=== PATIENT | female | born 2000 | race Caucasian/White ===

== ENCOUNTER 2020-12-12 17:43 | Outpatient (CLI) | payer BC ==
[2020-12-12] MEDS ORDERED: LACTATED RINGERS 250 ML IV PRN (18:14)
[2020-12-12] MEDS ORDERED: ACETAMINOPHEN IV (For NPO) 1,000 MG in EMPTY BAG 1 BAG IVPB ONE (18:14)
[2020-12-12 18:40] LABS: Appearance,Urine Clear (Clear); Bacteria,Urine Occasional /hpf; Bilirubin,Urine Negative (Negative); Blood,Urine Negative (Negative); Color,Urine Light Yellow; Glucose,Urine (UA) Negative (Negative); Hyaline Casts,Urine 1 /lpf (0-2); Ketones,Urine Negative (Negative); Leukocyte Esterase,Urine Large (Negative); Mucus,Urine Rare /hpf; Nitrite,Urine Negative (Negative); Protein,Urine Negative (Negative); RBC,Urine 1 /hpf (0-5); Squamous Epithelial Cell,Urine 6 /hpf (0-4); Urobilinogen,Urine <2.0 mg/dL (<2.0); WBC,Urine 9 /hpf (0-5)
[2020-12-12] MEDS ORDERED: LACTATED RINGERS 1,000 ML IV SCH (19:30)
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
[2020-12-12 21:31] VITALS: BP 122/61; PULSE 75; RESP 18; TEMP 98.4
== END 2020-12-12 20:30 | disposition home or self-care (01) ==
LOC: FBPOP 17:43
PROVIDERS: ATTEND Obstetrics & Gynecology Obstetrics
DX: Z34.92 Encounter for supervision of normal pregnancy, unspecified, second trimester (principal); Z3A.20 20 weeks gestation of pregnancy; N85.9 Noninflammatory disorder of uterus, unspecified
CPT/HCPCS: 99215; 96361; 96366; 96367; 81001; 76805; J0131

== ENCOUNTER 2021-03-09 02:52 | Emergency (ER) | payer BC ==
[2021-03-09 03:01] VITALS: TEMP 97.7
[2021-03-09] MEDS ORDERED: SODIUM CHLORIDE 0.9% 1,000 ML IV ONE (03:10)
[2021-03-09] MEDS ORDERED: ONDANSETRON 4 MG/2 ML VIAL IVP STA (03:10)
[2021-03-09] MEDS ORDERED: MAG HYDROX/AL HYDROX/SIMETH 30 ML CUP PO PRN (03:10)
--- NOTE | 2021-03-09 03:20 | ED ---
Nausea/Vomiting/Diarrhea HPI - General Chief complaint: Nausea/Vomiting/Diarrhea Stated complaint: vomiting, heartburn, 33 weeks pgt Time Seen by Provider: 03/09/21 03:09 Source: patient Mode of arrival: ambulatory Limitations: no limitations - History of Present Illness Initial comments: 's patient is a 20-year-old woman who presents to have evaluation for nausea vomiting and heartburn. The patient states that symptoms started about 2 hours ago. She had a few rounds of vomiting which was followed by having heartburn sensation substernal area. The patient denies any abdominal or chest pain. No dyspnea, diaphoresis, palpitations, lightheadedness or syncope. No leg pain or swelling. No change in urination or bowel movements. Patient is 33 weeks . Patient states she is feeling good movement. No vaginal bleeding or fluid. MD complaint: nausea, vomiting, other Onset/Timin -: hour(s) Description of Vomiting: food contents Associated Abdominal Pain: No Consistency: constant Improves with: none Worsens with: none - Related Data Home Medications Medication Instructions Recorded Confirmed Pnv,Calcium 72/Iron/Folic Acid 1 tab PO DAILY 12/12/20 12/12/20 [ Plus Tablet] Sertraline [Zoloft] 25 mg PO DAILY 12/12/20 12/12/20 Previous Rx's Medication Instructions Recorded Ondansetron Odt [Zofran ODT] 4 mg PO Q8HR PRN #10 tab 03/09/21 Allergies Allergy/AdvReac Type Severity Reaction Status Date / Time No Known Allergies Allergy Verified 03/09/21 03:01 Review of Systems ROS Statement: Those systems with pertinent positive or pertinent negative responses have been documented in the HPI. ROS Other: All systems not noted in ROS Statement are negative. Constitutional: Denies: fever, chills Respiratory: Denies: cough, dyspnea Cardiovascular: Denies: chest pain, palpitations, edema Gastrointestinal: Reports: nausea, vomiting. Denies: abdominal pain, diarrhea, constipation, hematemesis Genitourinary: Denies: dysuria, frequency, hematuria, abnormal menses Musculoskeletal: Denies: back pain Skin: Denies: rash Neurological: Denies: headache Past Medical History Past Medical History: No Reported History History of Any Multi-Drug Resistant Organisms: None Reported Past Surgical History: No Surgical Hx Reported Past Psychological History: Anxiety Smoking Status: Never smoker Past Alcohol Use History: None Reported Past Drug Use History: None Reported General Exam Limitations: no limitations General appearance: alert, in no apparent distress Head exam: Present: atraumatic, normocephalic Eye exam: Present: normal appearance. Absent: scleral icterus, conjunctival injection ENT exam: Present: normal oropharynx Respiratory exam: Present: normal lung sounds bilaterally. Absent: respiratory distress, wheezes, rales, rhonchi, stridor Cardiovascular Exam: Present: regular rate, normal rhythm, normal heart sounds. Absent: systolic murmur, diastolic murmur, rubs, gallop GI/Abdominal exam: Present: soft, other (Gravid uterus palpable well above diaphragm. movements noted.). Absent: distended, tenderness, guarding, rebound, rigid, mass, pulsatile mass, hernia Extremities exam: Present: normal inspection, normal capillary refill. Absent: pedal edema, calf tenderness Back exam: Present: normal inspection. Absent: CVA tenderness (R), CVA tenderness (L) Neurological exam: Present: alert Skin exam: Present: warm, dry, intact, normal color. Absent: rash Course Vital Signs 03/09/21 02:58 Temperature 97.7 F Pulse Rate 113 H Respiratory 22 Rate Blood Pressure 122/74 O2 Sat by Pulse 96 Oximetry Disposition Clinical Impression: Vomiting Disposition: HOME SELF-CARE Condition: Good Instructions (If sedation given, give patient instructions): Acute Nausea and Vomiting (ED) Prescriptions: Ondansetron Odt [Zofran ODT] 4 mg PO Q8HR PRN #10 tab PRN Reason: Nausea Is patient prescribed a controlled substance at d/c from ED?: No Referrals: June Sorto DO [Primary Care Provider] - 1-2 days
[2021-03-09 05:29] VITALS: BP 111/89; PULSE 77; RESP 20
== END 2021-03-09 05:38 | disposition home or self-care (01) ==
LOC: EC 02:52
DX: O21.2 Late vomiting of pregnancy (principal); O99.891 Other specified diseases and conditions complicating pregnancy; R12 Heartburn; Z3A.33 33 weeks gestation of pregnancy
CPT/HCPCS: 99283; 96374; 96361; J2405

== ENCOUNTER 2021-04-04 13:32 | Outpatient (CLI) | payer BC ==
[2021-04-04 13:43] LABS: Glucose,Whole Blood 93 mg/dL (75-99)
[2021-04-04 15:08] VITALS: BP 124/70; PULSE 89; RESP 16; TEMP 97.1
--- NOTE | 2021-04-12 11:52 | P.MSEPDOC ---
Presenting Problems - Arrival Data Date of Arrival on Unit: 04/04/21 Time of Arrival on Unit: 13:30 Mode of Transport: Wheelchair - Complaint OB-Reason for Admission/Chief Complaint: Syncope/Fainting Spell Medical History - Information : 1 Para: 0 Term: 0 : 0 Abortions: Spontaneous or Elective: 0 Number of Living Children: 0 - Gestational Age Gestational Age by TIM (wks/days): 37 Weeks and 3 Days Review of Systems - Review of Systems Constitutional: No problems Breast: No problems ENT: No problems Cardiovascular: No problems Respiratory: No problems Gastrointestinal: No problems Genitourinary: No problems Musculoskeletal: No problems Neurological: No problems Skin: No problems Vital Signs - Temperature Temperature: 97.1 F Temperature Source: Tympanic - Pulse Right Brachial Pulse Rate: 89 Pulse Assessment Method: Automatic Cuff - Respirations Respiratory Rate: 16 Oxygen Delivery Method: Room Air - Blood Pressure Right Arm Blood Pressure: 124/70 Blood Pressure Mean: 88 Blood Pressure Source: Automatic Cuff Medical Screen Scoring - Cervical Exam Membranes: Intact - Assessment - Baby A Baseline FHR: 125 Heart Rate - NICHD Category: Category I (Normal) NST: Reactive Physician Notification - Physician Notified Physician Notified Date: 04/04/21 Physician Notified Time: 14:00 Physician: Rosa Zavala Order Received: Yes - Notification Comment Comment: d/c home Maternal Triage Index - Maternal Triage Index Presenting for scheduled procedure w/no complaint: No - Stat/Priority 1 Stat Priority 1: No - Urgent/Priority 2 Urgent Priority 2: No - Prompt/Priority 3 Prompt Priority 3: No - Non-Urgent/Priority 4 Non-Urgent Priority 4: Yes Criteria Met for Priority 4: anxiety Disposition - Disposition OB Disposition: Discharge to home Discharge Date: 04/04/21 Discharge Time: 15:08 I agree with the RN Medical Screening Exam: Yes Physician's MSE Comment: I have neither seen nor examined the patient. Case reviewed; plan agreed upon as documented in EMR&OBIX.: Yes Diagnosis: RELATED CONDITIONS, UNSPECIFIED, THIRD TRIMESTER
== END 2021-04-04 15:12 | disposition home or self-care (01) ==
LOC: FBPOP 13:32
PROVIDERS: ATTEND Obstetrics & Gynecology
DX: O26.893 Other specified pregnancy related conditions, third trimester (principal); R55 Syncope and collapse; Z3A.37 37 weeks gestation of pregnancy
CPT/HCPCS: 59025; 99213

== ENCOUNTER 2021-04-13 07:00 | Inpatient (IN) | payer BC ==
[2021-04-13] MEDS ORDERED: DINOPROSTONE 10 MG INSERT.ER VAGINAL ONE (19:30)
[2021-04-13] MEDS ORDERED: BUTORPHANOL 1 MG/ML 1 ML VIAL IV PRN (19:43)
--- NOTE | 2021-04-13 19:49 | P.HPOB ---
History of Present Illness H&P Date: 04/13/21 Chief Complaint: 38-6/7 weeks, IUGR, induction The patient is a 20-year-old 1 para 0 admitted at 38-6/7 weeks as established by last menstrual period and confirmed by 13 week ultrasound. She is admitted for induction of labor secondary to the diagnosis of intrauterine growth restriction with growth below the 10th percentile at 35 weeks. She has had twice weekly NSTs along with weekly biophysical profile and S/D ratios which have been normal throughout. Her cervix is somewhat unfavorable and she is admitted for Cervidil cervical ripening prior to Pitocin induction tomorrow. On labor and delivery, all signs are reassuring with a category 1 heart rate tracing. Her was otherwise uncomplicated though group B strep status is positive. Obstetrical history: 1 para 0 with current statistics listed in history of present illness. EDC of 04/22/2021 was established by last menstrual period and confirmed by 13 week ultrasound. Laboratory workup demonstrates a blood type of O+ with a negative antibody screen. Rubella status is immune. The remainder of the laboratory workup was within normal limits. One hour Glucola was normal and group B strep status is positive. Gynecologic history: Unremarkable with no history of any infections to include STDs. Review of Systems Review of systems is confined to history of present illness. Past Medical History Past Medical History: No Reported History History of Any Multi-Drug Resistant Organisms: None Reported Past Surgical History: No Surgical Hx Reported Past Anesthesia/Blood Transfusion Reactions: No Reported Reaction Past Psychological History: Anxiety, Depression Smoking Status: Never smoker Past Alcohol Use History: None Reported Past Drug Use History: None Reported - Past Family History Mother Family Medical History: No Reported History Medications and Allergies Home Medications Medication Instructions Recorded Confirmed Type Pnv,Calcium 72/Iron/Folic Acid 1 tab PO DAILY 12/12/20 04/13/21 History [ Plus Tablet] Sertraline [Zoloft] 50 mg PO DAILY 12/12/20 04/13/21 History Allergies Allergy/AdvReac Type Severity Reaction Status Date / Time No Known Allergies Allergy Verified 04/04/21 13:35 Exam Vital Signs Temp Pulse Resp BP Pulse Ox 04/13/21 19:20 97 F L 97 16 134/66 100 Intake and Output 04/13/21 04/13/21 04/13/21 06:59 14:59 22:59 Other: Weight 84.368 kg In general, this is a well-developed, well-nourished white female in no acute distress. Her heart has a regular rhythm and rate without murmur. Her lungs are clear to auscultation bilaterally in all english. Her abdomen is gravid, nondistended, has normal active bowel sounds, is soft, nontender, and without any palpable masses aside from the uterine fundus. Her extremities are without any cyanosis, clubbing, or significant edema and are nontender to palpation bilaterally. Digital cervical examination demonstrates the cervix to be fingertip dilated, approximate 60-70% effaced, the vertex in presentation at -2 station. Cervidil is placed in the posterior fornix per protocol. Assessment and Plan (1) Term Current Visit: Yes Status: Acute Code(s): Z34.90 - ENCNTR FOR SUPRVSN OF NORMAL , UNSP, UNSP TRIMESTER SNOMED Code(s): 21724036 (2) IUGR (intrauterine growth restriction) Current Visit: Yes Status: Acute Code(s): GCS5843 - SNOMED Code(s): 27646553 (3) Unfavorable cervix in term Current Visit: Yes Status: Acute Code(s): O34.40 - MATERNAL CARE FOR OTH ABNLT OF CERVIX, UNSP TRIMESTER SNOMED Code(s): 246992028 (4) Mother positive for group B Streptococcus colonization Current Visit: Yes Status: Acute Code(s): P00.2 - AFFECTED BY MATERNAL INFEC/PARASTC DISEASES SNOMED Code(s): 77366667349871 Plan: The patient has been admitted for Cervidil cervical ripening to be followed by Pitocin induction should it be necessary. The risks and complications of the procedure been thoroughly explained to the patient and her significant other. Cervidil has been placed. The intention would be to start Pitocin augmentation tomorrow morning at 6 AM should it be necessary. She will have antibody prophylaxis with penicillin started at the onset of labor for tomorrow morning, whichever comes first. She is a good candidate for either IV or epidural analgesia, whichever she may choose. She will continue to have close maternal and surveillance and expectant management will be practiced.
[2021-04-13 19:53] LABS: Basophils # (A) 0.1 k/uL (0-0.2); Basophils % (A) 1 %; Eosinophils # (A) 0.4 k/uL (0-0.7); Eosinophils % (A) 3 %; HCT 37.8 % (34.0-46.0); HGB 12.6 gm/dL (11.4-16.0); Lymphocytes # (A) 2.4 k/uL (1.0-4.8); Lymphocytes % (A) 17 %; MCH 32.3 pg (25.0-35.0); MCHC 33.3 g/dL (31.0-37.0); MCV 96.9 fL (80.0-100.0); Mean Platelet Volume 7.9; Monocytes # (A) 0.8 k/uL (0-1.0); Monocytes % (A) 6 %; Neutrophils # (A) 9.8 k/uL (1.3-7.7); Neutrophils % (A) 70 %; Platelet Count 300 k/uL (150-450); RDW 13.1 % (11.5-15.5); WBC 13.9 k/uL (4.0-11.0)
[2021-04-14] MEDS ORDERED: OXYTOCIN 10 UNIT/ML 1 ML VIAL IM PRN (05:19)
[2021-04-14] MEDS ORDERED: METHYLERGONOVINE 0.2 MG/ML 1 ML AMP IM PRN (05:19)
[2021-04-14] MEDS ORDERED: TERBUTALINE 1 MG/ML VIAL SQ PRN (05:19)
[2021-04-14] MEDS ORDERED: CARBOPROST TROMETHAMINE 250 MCG/ML 1 ML AMP IM PRN (05:19)
[2021-04-14] MEDS ORDERED: LIDOCAINE 0.5% (PF) 5 MG/ML (50 ML SDV) SQ PRN (05:19)
[2021-04-14] MEDS ORDERED: LACTATED RINGERS 1,000 ML IV SCH (05:30)
[2021-04-14] MEDS ORDERED: OXYTOCIN 30 UNITS/500 ML NS 30 UNIT in SALINE 1 500ML.BAG IV SCH ×2 (05:30→14:15)
[2021-04-14] MEDS ORDERED: PENICILLIN G POTASSIUM 5,000,000 UNIT in DEXTROSE 5% IN WATER 100 ML IVPB ONE ×2 (06:00)
[2021-04-14] MEDS: LACTATED RINGERS 1,000 ML IV SCH ×3 (06:01→12:25)
[2021-04-14] MEDS: PENICILLIN G POTASSIUM 2,500,000 UNIT in DEXTROSE 5% IN WATER 100 ML IVPB SCH ×4 (10:51→14:32)
[2021-04-14] MEDS ORDERED: fentaNYL (PF) 50 MCG/ML 5 ML AMP ONE (11:38)
[2021-04-14] MEDS ORDERED: ROPIVACAINE 5MG/ML 20ML VIAL ONE (11:38)
[2021-04-14] MEDS ORDERED: SODIUM CHLORIDE 0.9% 100 ML BAG ONE (11:38)
[2021-04-14] MEDS ORDERED: HYDROcodone/APAP 7.5-325MG 1 EACH TAB PO PRN (14:02)
[2021-04-14] MEDS ORDERED: BENZOCAINE/MENTHOL SPRAY 1 GM/SPRAY AEROSOL TOPICAL PRN (14:02)
[2021-04-14] MEDS ORDERED: ACETAMINOPHEN TAB 325 MG TAB PO PRN (14:02)
[2021-04-14] MEDS ORDERED: diphenhydrAMINE 50 MG/ML 1 ML VIAL IVP PRN ×2 (14:02)
[2021-04-14] MEDS ORDERED: diphenhydrAMINE 25 MG CAP PO PRN (14:02)
[2021-04-14] MEDS ORDERED: ZOLPIDEM 5 MG TAB PO PRN (14:02)
[2021-04-14] MEDS ORDERED: SIMETHICONE 80 MG CHEWABLE PO PRN (14:02)
[2021-04-14] MEDS ORDERED: diphenhydrAMINE 50 MG CAP PO PRN (14:02)
[2021-04-14] MEDS ORDERED: HYDROCORTISONE 2.5% RECTAL CREAM 30 GM TUBE RECTAL PRN (14:02)
[2021-04-14] MEDS ORDERED: HYDROcodone/APAP 5-325MG 1 EACH TAB PO PRN (14:02)
--- NOTE | 2021-04-14 14:06 | P.PROBDLV ---
Vaginal Delivery Note - . Vaginal Delivery Note: The patient is a 20-year-old 1 para 0 admitted at 38-6/7 weeks with an unfavorable cervix secondary to a diagnosis of intrauterine growth restriction with growth below the 10th percentile discovered at 35+ weeks. Her testing has been reassuring. Her was otherwise uncomplicated and group B strep status is positive. She was admitted for Cervidil cervical ripening which she had placed last evening. Over the course of the night she did make cervical progress such that this morning, with Pitocin augmentation started she was found to be 2 cm dilated and 70% effaced at which time artificial rupture of membranes is carried out demonstrating clear fluid. She made progress to the active phase of labor and had an epidural catheter placed for analgesia. She then progressed quickly through the active phase to complete and pushed over the course of approximately 3-4 contractions to a normal spontaneous vaginal delivery of a viable 5 lbs. 12 oz. baby girl with Apgars of 9 at 1 minute and 9 at 5 minutes delivered in the right occiput anterior position. The placenta was delivered spontaneously, intact, and grossly normal although it was very small. There was a grossly normal three- vessel cord inserted approximate 3-4 cm from the margin of the placental disc. There were no significant lacerations of the perineum, vagina, or cervix. All sponge, instrument, needle counts were correct. There were no complications. Both mother and infant are resting comfortably in recovery.
[2021-04-14] MEDS: IBUPROFEN 600 MG TAB PO SCH ×2 (15:03→21:32)
[2021-04-14] MEDS: SENNOSIDES-DOCUSATE SODIUM 1 EACH TAB PO SCH (19:50)
[2021-04-15] MEDS: IBUPROFEN 600 MG TAB PO SCH ×3 (00:31→17:03)
[2021-04-15 05:43] LABS: Basophils % (A) 0 %; Eosinophils # (A) 0.5 k/uL (0-0.7); Eosinophils % (A) 3 %; HGB 11.7 gm/dL (11.4-16.0); Lymphocytes # (A) 3.3 k/uL (1.0-4.8); Lymphocytes % (A) 19 %; MCH 33.3 pg (25.0-35.0); MCHC 34.3 g/dL (31.0-37.0); Mean Platelet Volume 8.2; Monocytes # (A) 0.9 k/uL (0-1.0); Monocytes % (A) 5 %; Neutrophils # (A) 12.5 k/uL (1.3-7.7); Neutrophils % (A) 72 %; Platelet Count 251 k/uL (150-450); RBC 3.51 m/uL (3.80-5.40); RDW 12.6 % (11.5-15.5); WBC 17.4 k/uL (4.0-11.0)
[2021-04-15] MEDS: LACTATED RINGERS 1,000 ML IV SCH (06:54)
[2021-04-15] MEDS: SENNOSIDES-DOCUSATE SODIUM 1 EACH TAB PO SCH (08:28)
--- NOTE | 2021-04-15 11:19 | P.DS ---
Providers Date of admission: 04/13/21 19:01 Expected date of discharge: 04/15/21 Attending physician: Sonido Goss Primary care physician: Stated None - Discharge Diagnosis(es) (1) Term Current Visit: Yes Status: Acute (2) IUGR (intrauterine growth restriction) Current Visit: Yes Status: Acute (3) Unfavorable cervix in term Current Visit: Yes Status: Acute (4) Mother positive for group B Streptococcus colonization Current Visit: Yes Status: Acute (5) Normal spontaneous vaginal delivery Current Visit: Yes Status: Acute Hospital Course: The patient is a 20-year-old 1 para 0 admitted at 38-6/7 weeks by good dating parameters for Cervidil cervical ripening secondary to the diagnosis of intrauterine growth restriction with growth at less than 10th percentile starting at 35 weeks. testing was entirely reassuring. As her cervix was unfavorable, Cervidil is placed fairly after admission and she progressed overnight at which time Pitocin augmentation was added and she underwent artificial rupture of membranes. She then made progress in labor and had an epidural catheter placed. She progressed quickly to complete and then pushed to a normal spontaneous vaginal delivery of a viable 5 lbs. 12 oz. baby girl with Apgars of 9 at 1 minute and 9 at 5 minutes. Her course was unremarkable with vital signs remaining stable and her temperature was afebrile throughout. She was deemed stable for discharge on day #1 was discharged home to follow-up in the office in 6 weeks' time routinely. Discharge instructions included calling for any significantly increased bleeding or foul-smelling lochia, significantly increased fever or abdominal pain, perineal complaints, breast complaints, or anything else that concerned her. She was additionally instructed to have nothing in the vagina for at least 6 weeks time to include intercourse. She understood her instructions and agrees to follow up as noted above. Discharge medications included only [id number] analgesic pain medications as she has not opted to breast-feed. Maternal blood type is O+ and rubella status is immune. Procedures: #1. Cervidil cervical ripening #2. Pitocin induction #3. Artificial rupture of membranes #4. Epidural analgesia #5. Normal spontaneous vaginal delivery Patient Condition at Discharge: Stable Plan - Discharge Summary New Discharge Prescriptions: No Action Sertraline [Zoloft] 50 mg PO DAILY Pnv,Calcium 72/Iron/Folic Acid [ Plus Tablet] 1 tab PO DAILY Discharge Medication List Pnv,Calcium 72/Iron/Folic Acid [ Plus Tablet] 1 tab PO DAILY 12/12/20 [History] Sertraline [Zoloft] 50 mg PO DAILY 12/12/20 [History] Follow up Appointment(s)/Referral(s): Sonido Goss MD [STAFF PHYSICIAN] - 6 Weeks Discharge Disposition: HOME SELF-CARE
[2021-04-15 16:09] VITALS: BP 122/78; PULSE 81; RESP 18; TEMP 97.7
== END 2021-04-15 19:30 | disposition home or self-care (01) | DRG 807 ==
LOC: 4FBP 19:01
PROVIDERS: ADMIT Obstetrics & Gynecology; ATTEND Obstetrics & Gynecology
PROC: 10E0XZZ Delivery of Products of Conception, External Approach (ICD-10-PCS; principal; 2021-04-14)
PROC: 10907ZC Drainage of Amniotic Fluid, Therapeutic from Products of Conception, Via Natural or Artificial Opening (ICD-10-PCS; 2021-04-14)
DX: O36.5930 Maternal care for other known or suspected poor fetal growth, third trimester, not applicable or unspecified (principal); Z37.0 Single live birth; O99.824 Streptococcus B carrier state complicating childbirth; O99.344 Other mental disorders complicating childbirth; F41.9 Anxiety disorder, unspecified; F32.9 Major depressive disorder, single episode, unspecified; Z3A.38 38 weeks gestation of pregnancy
CPT/HCPCS: 85025; 86850; 86900; 86901

== ENCOUNTER → 2023-02-09 | Outpatient (CLI) | payer OTHER ==
--- NOTE | 2023-02-10 08:20 | CT ---
EXAMINATION TYPE: CT abdomen pelvis wo/w con DATE OF EXAM: 02/09/2023 COMPARISON: Ultrasound 12/12/2020 HISTORY: Cyst found on left ovary CT DLP: 1557.1 mGycm Automated exposure control for dose reduction was used. CONTRAST: CT scan of the abdomen pelvis is performed with IV Contrast, patient injected with 100cc mL of Isovue 300. FINDINGS- LUNG BASES- No significant abnormality is appreciated. LIVER/GB- No gross abnormality is appreciated. PANCREAS- No gross abnormality is seen. SPLEEN- No gross abnormality is seen. ADRENALS- No gross abnormality is seen. KIDNEYS/BLADDER- no hydronephrosis nephrolithiasis or renal mass. BOWEL- nonspecific bowel gas pattern with no obstruction. Appendix normal. Small hiatal hernia. LYMPH NODES- No greater than 1cm abdominal or pelvic lymph nodes are appreciated. OSSEOUS STRUCTURES- No significant abnormality is seen. OTHER- ovaries are fairly symmetric in size with no evidence of adnexal cyst. Aorta of normal calibe r. Small fat-containing periumbilical hernia. Curvature of the spine correlate scoliosis. IMPRESSION- 1. No evidence of adnexal cyst.
== END | disposition home or self-care (01) ==
LOC: RADCTMAIN 17:30
PROVIDERS: ATTEND Family Medicine
DX: N83.291 Other ovarian cyst, right side (principal)
CPT/HCPCS: 74178; Q9967

== ENCOUNTER 2024-07-26 07:05 | Inpatient (IN) | payer OTHER ==
--- NOTE | 2024-07-26 07:59 | P.HPOB ---
History of Present Illness H&P Date: 07/26/24 Chief Complaint: labor, SROM 23 year old presents at 39 weeks with SROM at 0630. She sees a physican at another facility. Her cervix is 3-4/60/-2. She is marcus irregularly and heart tones are category 1. Review of Systems All systems: negative Constitutional: Denies chills, Denies fever Eyes: denies blurred vision, denies pain Ears, nose, mouth and throat: Denies headache, Denies sore throat Cardiovascular: Denies chest pain, Denies shortness of breath Respiratory: Denies cough Gastrointestinal: Denies abdominal pain, Denies diarrhea, Denies nausea, Denies vomiting Genitourinary: Denies dysuria, Denies hematuria Musculoskeletal: Denies myalgias Integumentary: Denies pruritus, Denies rash Neurological: Denies numbness, Denies weakness Psychiatric: Denies anxiety, Denies depression Endocrine: Denies fatigue, Denies weight change Past Medical History Past Medical History: No Reported History History of Any Multi-Drug Resistant Organisms: None Reported Past Surgical History: No Surgical Hx Reported Past Anesthesia/Blood Transfusion Reactions: No Reported Reaction Smoking Status: Never smoker - Past Family History Mother Family Medical History: No Reported History Medications and Allergies Home Medications Medication Instructions Recorded Confirmed Type Vit No.180/Iron/Folic 1 tab PO DAILY 12/12/20 07/26/24 History [ Plus Tablet] Allergies Allergy/AdvReac Type Severity Reaction Status Date / Time No Known Allergies Allergy Verified 04/04/21 13:35 Exam Osteopathic Statement: *. No significant issues noted on an osteopathic structural exam other than those noted in the History and Physical/Consult. Vital Signs Temp Pulse Resp BP Pulse Ox 07/26/24 07:10 97.7 F 83 16 135/78 99 Intake and Output 07/25/24 07/26/24 07/26/24 22:59 06:59 14:59 Other: Weight 94.347 kg Heart: Regular rate and rhythm Lungs: Clear to auscultation bilaterally Abdomen: Soft, nontender Extremities: Negative Homans sign Assessment and Plan (1) Normal labor Current Visit: Yes Status: Acute Code(s): O80 - ENCOUNTER FOR FULL-TERM UNCOMPLICATED DELIVERY; Z37.9 - OUTCOME OF DELIVERY, UNSPECIFIED SNOMED Code(s): 22703583 (2) Spontaneous rupture of membranes Current Visit: Yes Status: Acute Code(s): MVK0382 - SNOMED Code(s): 169 376152 Plan: 1. admit to [facility] 2. obtain records 3. expectant management 4. anticipate normal vaginal delivery
[2024-07-26] MEDS ORDERED: OXYTOCIN 10 UNIT/ML 1 ML VIAL IM PRN (08:02)
[2024-07-26] MEDS ORDERED: miSOPROStoL 200 MCG TAB PO PRN ×2 (08:02→11:41)
[2024-07-26] MEDS ORDERED: TERBUTALINE 1 MG/ML VIAL SQ PRN (08:02)
[2024-07-26] MEDS ORDERED: miSOPROStoL 200 MCG TAB RECTAL PRN (08:02)
[2024-07-26] MEDS ORDERED: LIDOCAINE 0.5% (PF) 5 MG/ML (50 ML SDV) SQ PRN (08:02)
[2024-07-26] MEDS ORDERED: METHYLERGONOVINE 0.2 MG/ML 1 ML AMP IM PRN ×2 (08:02→11:41)
[2024-07-26] MEDS ORDERED: CARBOPROST TROMETHAMINE 250 MCG/ML 1 ML AMP IM PRN ×2 (08:02→11:41)
[2024-07-26] MEDS ORDERED: TRANEXAMIC 1,000 MG/100ML-NACL 1,000 MG in EMPTY BAG 1 BAG IV PRN (08:02)
[2024-07-26 08:14] LABS: Basophils # (A) 0.1 k/uL (0-0.2); Basophils % (A) 0 %; Eosinophils # (A) 0.2 k/uL (0-0.7); Eosinophils % (A) 1 %; HCT 40.4 % (34.0-46.0); HGB 13.6 gm/dL (11.4-16.0); Lymphocytes # (A) 3.3 k/uL (1.0-4.8); Lymphocytes % (A) 20 %; MCH 31.9 pg (25.0-35.0); MCHC 33.7 g/dL (31.0-37.0); MCV 94.5 fL (80.0-100.0); Mean Platelet Volume 9.1; Monocytes # (A) 0.9 k/uL (0-1.0); Monocytes % (A) 5 %; Neutrophils # (A) 11.8 k/uL (1.3-7.7); Neutrophils % (A) 72 %; Platelet Count 285 k/uL (150-450); RBC 4.27 m/uL (3.80-5.40); RDW 12.7 % (11.5-15.5); WBC 16.4 k/uL (3.8-10.6)
[2024-07-26] MEDS: LACTATED RINGERS 1,000 ML IV SCH ×2 (08:23→13:40)
[2024-07-26 08:32] LABS: Amphetamine Screen,Urine Not Detected (NotDetected); Barbiturate Screen,Urine Not Detected (NotDetected); Benzodiazepines Screen,Urine Not Detected (NotDetected); Cocaine Screen,Urine Not Detected (NotDetected); Methadone Screen, Urine Not Detected (NotDetected); Opiate Screen,Urine Not Detected (NotDetected); Oxycodone Screen, Urine Not Detected (NotDetected); Phencyclidine Screen,Urine Not Detected (NotDetected); Tricyclic Antidepressant,Urine Not Detected (NotDetected); Urn Cannabinoid Scrn Not Detected (NotDetected)
[2024-07-26] MEDS: OXYTOCIN 30 UNITS/500 ML NS 30 UNIT in SALINE 1 500ML.BAG IV SCH (08:45)
[2024-07-26] MEDS ORDERED: MORPHINE SULFATE (PF) 0.3 MG/0.3 ML SYR ONE (11:46)
[2024-07-26] MEDS ORDERED: OXYTOCIN 30 UNITS/500 ML NS BAG IV ONE (11:46)
[2024-07-26] MEDS ORDERED: PHENYLEPHRINE-0.9% NACL SYG 1,000 MCG/10 ML SYRINGE ONE (11:46)
[2024-07-26] MEDS ORDERED: ONDANSETRON 4 MG/2 ML VIAL ONE (11:46)
[2024-07-26] MEDS ORDERED: OXYTOCIN 30 UNITS/500 ML NS 30 UNIT in SALINE 1 500ML.BAG IV SCH (12:46)
[2024-07-26] MEDS ORDERED: diphenhydrAMINE 50 MG/ML 1 ML VIAL IVP PRN ×2 (12:46)
[2024-07-26] MEDS ORDERED: METOCLOPRAMIDE 5 MG/ML 2 ML VIAL IVP PRN (12:46)
[2024-07-26] MEDS ORDERED: ONDANSETRON 4 MG/2 ML VIAL IVP PRN (12:46)
[2024-07-26] MEDS ORDERED: ZOLPIDEM 5 MG TAB PO PRN (12:46)
[2024-07-26] MEDS ORDERED: diphenhydrAMINE 25 MG CAP PO PRN (12:46)
[2024-07-26] MEDS ORDERED: diphenhydrAMINE 50 MG CAP PO PRN (12:46)
[2024-07-26] MEDS ORDERED: NALOXONE 0.4 MG/ML 1 ML VIAL IV PRN (12:46)
--- NOTE | 2024-07-26 13:09 | P.OP ---
Date of Procedure: 07/26/24 Preoperative Diagnosis: BP at 39-3/7 weeks, spontaneous rupture of membranes, labor, nonreassuring heart tones Postoperative Diagnosis: same Procedure(s) Performed: Primary low-transverse section Anesthesia: spinal Surgeon: Areli Barcenas Labor Contractor #1: Sonido Goss Estimated Blood Loss (ml): 830 IV fluids (ml): 1,000 Urine output (ml): 200 (Clear yellow) Pathology: other (Placenta) Condition: stable Disposition: observation Indications for Procedure: 23-year-old G2, P1 at 39-3/7 weeks that had been receiving care with Dr. Nixon Wright in [place], patient had spontaneous rupture of membranes and felt she was unable to present to his admitting hospital. Patient presented to [facility] spontaneous rupture of membranes was confirmed with positive AmniSure. Patient was admitted to labor and delivery. Pitocin augmentation of labor was begun as no contractions were appreciated. Deep variables were noted, category 2/3 heart tones are now appreciated Pitocin was turned off and position changes were initiated. heart tones returned to category 2. Patient was counseled on heart tones and need for primary given nonreassuring heart tones. Patient states understanding all questions were answered with patient and her significant other. Anesthesia is notified, will proceed to operating suite. Operative Findings: Viable male delivered at 1210, weight of 7 pounds 5 ounces, Apgars of 9 and 9 at 1 and 5 minutes respectively. Upon entry of the uterus large clot was extruded placenta was noted to be detaching from the uterine wall. Normal ovaries appreciated. Description of Procedure: The patient was prepped and draped in the usual fashion after spinal anesthesia was administered by the anesthesia department. A Pfannenstiel incision was made and extended of the abdominal cavity without difficulty. The bladder peritoneum was elevated and incised and reflected distally. A 2 cm incision was made in the transverse plane of the lower uterine segment to enter the uterus at which time bloody fluid was noted, along with clot. The incision was extended in both directions using the bandage scissors. The head was encountered within the field and delivered up and through the incision where the nose and mouth were thoroughly suctioned. Remainder of the infant was delivered onto the surgical field where the cord was doubly clamped, cut, and the was passed for resuscitative measures with weight and Apgars as noted above. The placenta was delivered manually, intact, and was grossly normal with a grossly normal three-vessel cord. The uterus was exteriorized and the interior cavity of the uterus swept of any remaining placental and membranous fragments with a laparotomy sponge. The margins of the incision were grasped with Mahan clamps and the incision closed in 2 layers. First layer was a running locking layer of 0 chromic catgut from margin to margin followed by a second layer of imbricating 0 Vicryl from margin to margin. Bleeding was noted on the right lateral edge of the hysterotomy incision, appearance of sheared uterine vessel, 2 [id number]'s were used to obtain hemostasis. Surgicel powder was placed along the area with hemostasis appreciated, bladder was noted to be away from the area of concern. Once hemostasis was achieved, the posterior cul-de-sac was suctioned with a guard and the uterine and ovarian findings are as noted above. The uterus was replaced within the abdominal cavity and the gutters swept of any remaining blood fluid or clot. The incision was again reexamined and hemostasis was noted to be excellent. Any small point of bleeding were made hemostatic with the Bovie. Once hemostasis was achieved the parietal peritoneum was loosely reapproximated. The layer of muscles were examined and made hemostatic with the Bovie. Attention was then turned to the fascia which was closed with 0 Vicryl in a running fashion from 1 lateral edge to the other. The subcutaneous tissues were irrigated, made hemostatic with the Bovie, and reapproximated with a running stitch of 30 vicryl.. The skin was reapproximated with regular surgical melinda. Estimated blood loss for the case was approximately 600 mL. All sponge instrument and needle counts are correct. There were no complications. The patient tolerated the procedure well and proceeded to the recovery room in stable condition. Both mother and are resting comfortably in recovery.
[2024-07-26] MEDS: CITRIC ACID-SODIUM CITRATE 15 ML CUP PO ONE (13:22)
[2024-07-26] MEDS: ACETAMINOPHEN IV (For NPO) 1,000 MG in EMPTY BAG 1 BAG IVPB ONE (13:39)
[2024-07-26] MEDS ORDERED: KETOROLAC 15 MG/ML 1 ML VIAL IVP SCH (17:00)
[2024-07-26] MEDS: IBUPROFEN IV 800 MG in SODIUM CHLORIDE 0.9% 250 ML IV ONE (18:10)
[2024-07-26] MEDS: SENNOSIDES-DOCUSATE SODIUM 1 EACH TAB PO SCH (20:32)
[2024-07-26] MEDS: ACETAMINOPHEN TAB 500 MG TAB PO SCH (21:36)
[2024-07-27] MEDS: IBUPROFEN 800 MG TAB PO SCH (02:02)
[2024-07-27] MEDS: SIMETHICONE 80 MG CHEWABLE PO PRN (02:04)
[2024-07-27 06:41] LABS: Basophils % (A) 0 %; Eosinophils # (A) 0.1 k/uL (0-0.7); Eosinophils % (A) 1 %; HCT 30.8 % (34.0-46.0); HGB 10.8 gm/dL (11.4-16.0); Lymphocytes # (A) 2.8 k/uL (1.0-4.8); Lymphocytes % (A) 20 %; MCH 33.4 pg (25.0-35.0); MCV 95.6 fL (80.0-100.0); Mean Platelet Volume 8.7; Monocytes # (A) 0.8 k/uL (0-1.0); Monocytes % (A) 6 %; Neutrophils # (A) 9.6 k/uL (1.3-7.7); Neutrophils % (A) 72 %; Platelet Count 205 k/uL (150-450); RBC 3.22 m/uL (3.80-5.40); RDW 12.8 % (11.5-15.5); WBC 13.5 k/uL (3.8-10.6)
--- NOTE | 2024-07-27 07:03 | P.PNOBGPC ---
Subjective - Subjective Principal diagnosis: Postop day 1, primary Interval history: Patient is doing well postoperatively. She is ambulating and voiding without difficulty. She is tolerating a regular diet without nausea or vomiting. She states her pain is well-controlled. She denies concerns. Patient reports: Reports appetite normal, Reports voiding normally, Reports pain well controlled, Reports ambulating normally : doing well Objective - Vital Signs Latest vital signs: Vital Signs Temp Pulse Resp BP Pulse Ox 07/27/24 04:00 98.5 F 71 16 131/84 97 07/27/24 00:45 16 07/27/24 00:00 98.8 F 74 16 142/95 98 07/26/24 20:00 75 16 133/85 100 07/26/24 16:45 98.0 F 75 16 125/78 97 07/26/24 14:45 98.1 F 65 16 122/65 96 07/26/24 14:30 70 16 137/66 97 07/26/24 14:15 69 16 112/72 97 07/26/24 14:00 65 16 120/63 96 07/26/24 13:45 69 16 108/61 98 07/26/24 13:30 70 16 113/67 98 07/26/24 13:15 67 16 110/64 97 07/26/24 13:00 69 16 108/62 98 07/26/24 12:45 97.1 F L 65 16 105/55 98 07/26/24 07:10 97.7 F 83 16 135/78 99 Intake and Output 07/26/24 07/27/24 07/27/24 22:59 06:59 14:59 Intake Total 832.5 Output Total 1250 800 Balance -417.5 -800 Intake: Intake, IV Titration 332.5 Amount Oxytocin 30 Units/500 ml 332.5 Ns 30 unit In Saline 1 500ml.bag @ Per Protocol IV .Q0M [facility] Rx#:[id number] Oral 500 Output: Urine 1250 800 Uretheral (Triplett) 850 Other: Voiding Method Indwelling Catheter # Voids 1 - Exam Extremities: Present: normal, edema Abdomen: Present: normal appearance, soft Incision: Present: normal, dry, intact Uterus: Present: normal, firm - Labs Labs: Abnormal Lab Results - Last 24 Hours (Table) 10/30/24 10/31/24 Range/Units 08:00 06:22 WBC 16.4 H 13.5 H (3.8-10.6) k/uL RBC 3.22 L (3.80-5.40) m/uL Hgb 10.8 L (11.4-16.0) gm/dL Hct 30.8 L (34.0-46.0) % Neutrophils # 11.8 H 9.6 H (1.3-7.7) k/uL Assessment and Plan (1) Non-reassuring heart rate with late deceleration Current Visit: Yes Status: Acute Code(s): O36.8390 - MATERN CARE FOR ABNLT FETL HRT RATE OR RHYM, UNSP TRI, UNSP SNOMED Code(s): 175815258 (2) Placental abruption Current Visit: Yes Status: Acute Code(s): O45.90 - PREMATURE SEPARATION OF PLACENTA, UNSP, UNSP TRIMESTER SNOMED Code(s): 416971996 (3) Spontaneous rupture of membranes Current Visit: Yes Status: Acute Code(s): KQZ6617 - SNOMED Code(s): 349301513 (4) Term Current Visit: No Status: Acute Code(s): Z34.90 - ENCNTR FOR SUPRVSN OF NORMAL , UNSP, UNSP TRIMESTER SNOMED Code(s): 06106922 Plan: 23-year-old 2 now para 2 status post primary for nonreassuring heart tones, placental abruption appreciated on . Patient is doing well postoperatively. Plan to continue routine postoperative care
--- NOTE | 2024-07-27 08:08 | P.PN ---
Progress Note - Text Progress Note Date: 07/27/24 (6218) Anesthesia Postop day 1 Subjective: Status Post section with Duramorph. Patient seen and examined. Doing well without complaint. VAS 0. No nausea or vomiting. Mild pruritus tolerable.. Denies fever. Gross lower extremity strength intact. Without apparent anesthetic complications. Objective: Vital signs reviewed Heart: Regular Rate Lungs: Good chest excursion Abdomen: Appears nondistended Assessment: Status post section with Duramorph postop day 1 Plan: 1. Continue current care with your medical management. Anticipated end to the duration of the Duramorph around surgery time today. You may see increased pain needs around this time. 2. This note was dictated using [employer] software. Please be advised there is a potential for misspellings or errors in farm loan representative.
[2024-07-27] MEDS: PRENATAL VIT-IRON-FOLIC ACID 1 EACH TABLET PO SCH (12:20)
[2024-07-27] MEDS ORDERED: IBUPROFEN 800 MG TAB PO SCH (17:00)
[2024-07-28 09:11] VITALS: PULSE 74; TEMP 99.7
--- NOTE | 2024-07-28 09:20 | P.DS ---
Providers Date of admission: 07/26/24 07:24 Expected date of discharge: 07/28/24 Attending physician: Whit Mohan Primary care physician: Stated None - Discharge Diagnosis(es) (1) Non-reassuring heart rate with late deceleration Current Visit: Yes Status: Acute (2) Placental abruption Current Visit: Yes Status: Acute (3) Spontaneous rupture of membranes Current Visit: Yes Status: Acute (4) Term Current Visit: No Status: Acute Hospital Course: 23-year-old 2 now para 2 that presented to labor and delivery at 39-3/7 weeks with complaints of spontaneous rupture of membranes on 07/26. Patient had been receiving care with Dr. Nixon Wright in [place]. Patient felt she was unable to make it to his admitting hospital therefore presented to [facility]. Patient had noted confirmation of rupture of membranes with a positive AmniSure. Patient was admitted to labor and delivery. Minimal contractions were appreciated therefore Pitocin augmentation of labor was begun. Deep variables were noted position changes were instituted and Pitocin was turned off. Patient continued to have continued category 2/3 heart tones therefore recommendation for primary low-transverse section was made. In addition a slight amount of bloody fluid was appreciated. Patient was taken back to the operating suite where a viable male infant was delivered at 1210, weight of 7 pounds 5 ounces on 07/26. A large clot was noted upon entry to the uterus and uterine abruption was appreciated. was performed without difficulty for full details on the please see the dictated operative report. Patient's postoperative course has been essentially uneventful. In this postoperative day #2 she is ambulating and voiding without difficulty. She is tolerating a regular diet without nausea or vomiting. She states her pain is well-controlled. She denies concerns and would like discharge home later today. Patient Condition at Discharge: Good Plan - Discharge Summary New Discharge Prescriptions: No Action Vit No.180/Iron/Folic [ Plus Tablet] 1 tab PO DAILY Discharge Medication List Vit No.180/Iron/Folic [ Plus Tablet] 1 tab PO DAILY 12/12/20 [History] Follow up Appointment(s)/Referral(s): Whit Mohan DO [Doctor of Osteopathic Medicine] - 08/09/24 1:15 pm (Post Appointment 09-06-2024 at 11:30am) Patient Instructions/Handouts: (DC), (GEN) Activity/Diet/Wound Care/Special Instructions: No tub baths or intercourse until 6 weeks postoperatively. Eymy-zjj-hpkaxza ibuprofen 600 mg or 3 tablets every 6 hours as needed for pain. Patient is to call the office to make a routine visit for 2 weeks for postop check. Discharge Disposition: HOME SELF-CARE
[2024-07-28 09:57] VITALS: BP 127/84; RESP 13
== END 2024-07-28 14:25 | disposition home or self-care (01) | DRG 540 ==
LOC: FBPOP 07:05 → 4FBP 07:24
PROVIDERS: ADMIT Obstetrics & Gynecology; ATTEND Obstetrics & Gynecology
PROC: 10D00Z1 Extraction of Products of Conception, Low, Open Approach (ICD-10-PCS; principal; 2024-07-26 12:00)
DX: O76 Abnormality in fetal heart rate and rhythm complicating labor and delivery (principal); L29.9 Pruritus, unspecified; Z37.0 Single live birth; Z3A.39 39 weeks gestation of pregnancy
CPT/HCPCS: 59025; 80306; 84112; 85025; 86850; 86900; 86901; 88307; 99213